=== PATIENT | female | born 1955 | race African-American/Black ===

== ENCOUNTER 2023-07-12 19:32 | Inpatient (IN) | payer MEDICARE, MEDICAID ==
[~2023-07-12] VITALS: Ht 157.5 cm; Wt 114.4 kg
[2023-07-12 19:42] VITALS: O2SAT 98
[2023-07-12] MEDS: ASPIRIN 325MG EC TABLET PO ONE (20:48)
[2023-07-12] MEDS: AMLODIPINE 5MG TABLET PO ONE (20:49)
[2023-07-12 20:54] LABS: BASOPHILS % 0.9 % (0.0-2.0); EOSINOPHILS % 1.2 % (0.0-5.0); HEMATOCRIT. 35.5 % (36.0-48.0); HEMOGLOBIN. 11.6 g/dL (12.0-16.0); LYMPHOCYTES % 47.4 % (20.0-50.0); MEAN CORPUSCULAR HEMOGLOBIN 28.1 pg (28.0-32.0); MEAN CORPUSCULAR HGB CONC 32.7 g/dL (31.0-37.0); MEAN PLATELET VOLUME 9.2 fl (7.4-10.4); MONOCYTES % 6.5 % (2.0-8.0); PLATELET 311 x1000/uL (130-400); RED BLOOD CELL COUNT 4.13 mill/uL (4.2-5.4); RED CELL DISTRIBUTION WIDTH 17.5 % (11.6-14.6); WHITE BLOOD COUNT 10.6 x1000/uL (4.5-11.0)
[2023-07-12 20:59] LABS: CHLORIDE 104 mEq/L (98-107); POTASSIUM 3.7 mEq/L (3.5-5.1); SODIUM 137 mEq/L (136-145)
[2023-07-12 21:00] LABS: CARBON DIOXIDE 28 mEq/L (21-32)
[2023-07-12 21:01] LABS: CALCIUM 10.6 mg/dL (8.7-10.4)
[2023-07-12 21:05] LABS: CREATININE 1.1 mg/dL (0.6-1.0); GLUCOSE 136 mg/dL (70-105)
[2023-07-12 21:06] LABS: UREA NITROGEN BLOOD 19 mg/dL (9-23)
[2023-07-12 21:10] LABS: TROPONIN I HIGH SENSITIVITY 204 ng/L (3.0-34)
[2023-07-12] MEDS: ENOXAPARIN 120MG/0.8ML SYR SUBCUT ONE (21:45)
[2023-07-12] MEDS: MORPHINE SULFATE 4 MG/ML INJ (FOR IV/IM USE) IV ONE (23:23)
[2023-07-13 00:36] LABS: TROPONIN I HIGH SENSITIVITY 196 ng/L (3.0-34)
[2023-07-13] MEDS: ZOLPIDEM TARTRATE 5MG TABLET PO PRN ×2 (03:32→22:27)
[2023-07-13] MEDS: HYDRALAZINE 20MG/ML VIAL IV ONE (03:32)
[2023-07-13] MEDS: LABETALOL 5MG/ML SYR 20 MG/4 ML SYRINGE IV ONE (03:32)
[2023-07-13] MEDS: LABETALOL 5MG/ML SYR 20 MG/4 ML SYRINGE IV NR (03:33)
[2023-07-13] MEDS: HYDRALAZINE 20MG/ML VIAL IV NR (03:33)
[2023-07-13] MEDS ORDERED: HYDROCODONE/ACETAMINOPHEN 10/325MG TABLET PO PRN (05:15)
[2023-07-13 09:00] VITALS: BP 195/98; PULSE 77; RESP 20; TEMP 98.5
[2023-07-13 09:29] VITALS: BP 195/98; PULSE 77; RESP 18; TEMP 98.5
[2023-07-13] MEDS ORDERED: NALOXONE HCL 0.4MG/ML VIAL IV PRN (09:30)
[2023-07-13 12:01] VITALS: BP 146/69; PULSE 82; RESP 18; TEMP 98.1
[2023-07-13] MEDS ORDERED: HEPARIN 25,000 UNITS PREMIX 250 ML IV SCH (12:15)
[2023-07-13] MEDS: NIFEDIPINE XL 60MG TAB PO SCH (12:23)
[2023-07-13] MEDS: ACETAMINOPHEN 325MG TABLET PO PRN (12:24)
[2023-07-13] MEDS: METOPROLOL TARTRATE 50MG TABLET PO SCH (12:55)
[2023-07-13] MEDS: ISOSORBIDE MONONITRATE 30MG TABLET SR 24HR PO SCH (12:56)
[2023-07-13] MEDS ORDERED: ATOR-2 PO (14:34)
[2023-07-13] MEDS ORDERED: ESCI20TA37 PO (14:34)
[2023-07-13] MEDS ORDERED: SPIR25TA6 PO (14:34)
[2023-07-13] MEDS ORDERED: POTA-203 PO (14:34)
[2023-07-13] MEDS ORDERED: FURO40TA5 PO (14:34)
[2023-07-13] MEDS ORDERED: CARV3.1242 PO (14:34)
[2023-07-13] MEDS ORDERED: OXYC1TAB12 PO (14:34)
[2023-07-13] MEDS ORDERED: ZOLP10TA2 PO (14:34)
[2023-07-13] MEDS ORDERED: LOSA50TA41 PO (14:34)
[2023-07-13 14:35] LABS: BASOPHILS % 1.2 % (0.0-2.0); EOSINOPHILS % 1.8 % (0.0-5.0); HEMATOCRIT. 34.2 % (36.0-48.0); HEMOGLOBIN. 10.9 g/dL (12.0-16.0); LYMPHOCYTES % 44.2 % (20.0-50.0); MEAN CORPUSCULAR HEMOGLOBIN 27.6 pg (28.0-32.0); MEAN CORPUSCULAR HGB CONC 31.8 g/dL (31.0-37.0); MEAN CORPUSCULAR VOLUME 86.7 fL (81.0-99.0); MONOCYTES % 10.2 % (2.0-8.0); NEUTROPHILS % 42.6 % (40.0-76.0); PLATELET 291 x1000/uL (130-400); RED BLOOD CELL COUNT 3.94 mill/uL (4.2-5.4); RED CELL DISTRIBUTION WIDTH 17.3 % (11.6-14.6); WHITE BLOOD COUNT 8.2 x1000/uL (4.5-11.0)
[2023-07-13 14:44] LABS: PARTIAL THROMBOPLASTIN TIME 25.3 sec (23.4-31.0); PROTHROMBIN TIME 11.1 sec (9.6-11.0)
[2023-07-13 15:04] LABS: *AMPHETAMINES SCREEN URINE NEGATIVE (NEGATIVE); *BARBITURATES SCREEN URINE NEGATIVE (NEGATIVE); *BENZODIAZEPINES SCREEN URINE NEGATIVE (NEGATIVE)
[2023-07-13 15:05] LABS: *COCAINE SCREEN URINE NEGATIVE (NEGATIVE); CANNABINOID URINE SCREEN NEGATIVE (NEGATIVE); ECSTASY MDMA SCREEN URINE NEGATIVE (NEGATIVE); METHADONE URINE SCREEN NEGATIVE (NEGATIVE); OPIATES URINE SCREEN PRESUMPTIVE POSITIVE (NEGATIVE); PHENCYCLIDINE URINE SCREEN NEGATIVE (NEGATIVE)
[2023-07-13 15:40] VITALS: BP 114/55; PULSE 58; RESP 20; TEMP 98.1
[2023-07-13] MEDS: HEPARIN 5000 UNITS/ML VIAL IV SCH (15:49)
[2023-07-13] MEDS: HEPARIN 25,000 UNITS PREMIX 250 ML IV SCH (15:57)
[2023-07-13 16:06] LABS: CLARITY URINE CLEAR (CLEAR); COLOR URINE YELLOW (YELLOW); GLUCOSE URINE NEGATIVE (NEGATIVE); KETONES URINE NEGATIVE (NEGATIVE); LEUKOCYTE ESTERASE URINE NEGATIVE (NEGATIVE); NITRITE URINE NEGATIVE (NEGATIVE); OCCULT BLOOD URINE NEGATIVE (NEGATIVE); PH URINE 7.5 (4.5-8.0); PROTEIN URINE NEGATIVE (NEGATIVE); SPECIFIC GRAVITY URINE 1.011 (1.005-1.030); UROBILINOGEN URINE 0.2 E.U./dL (0.2-1.0)
[2023-07-13] MEDS ORDERED: AMIODARONE HCL 900 MG in DEXT 5% WATER 482 ML IV SCH (17:00)
[2023-07-13] MEDS ORDERED: AMIODARONE HCL 900 MG in DEXT 5% WATER 482 ML IV PRN (17:00)
[2023-07-13] MEDS: FUROSEMIDE 20MG/2ML VIAL IVP NR (18:38)
[2023-07-13 20:00] VITALS: BP 121/83; PULSE 66; RESP 20; TEMP 98.2
[2023-07-13] MEDS: KETOROLAC 15MG/ML VIAL IV PRN (20:48)
[2023-07-13] MEDS ORDERED: HEPARIN 5000 UNITS/ML VIAL IV PRN (21:30)
[2023-07-13 21:33] VITALS: BP 163/74; PULSE 68; RESP 15; TEMP 98.6
[2023-07-13] MEDS: HYDROCODONE/ACETAMINOPHEN 10/325MG TABLET PO PRN (22:29)
[2023-07-13] MEDS: HEPARIN 5000 UNITS/ML VIAL IV PRN (23:54)
[2023-07-14] VITALS (10 sets, daily range): BP systolic 116–151; BP diastolic 49–111; PULSE 51–87; RESP 16–21; TEMP 97–97.6
[2023-07-14] MEDS: ONDANSETRON HCL 4MG/2ML INJ IV PRN (04:36)
[2023-07-14] MEDS ORDERED: LIDOCAINE HCL/PF 1% 10 MG/ML 5ML VIAL ONE (08:14)
[2023-07-14] MEDS ORDERED: DIPHENHYDRAMINE 50MG/ML VIAL ONE (08:15)
[2023-07-14] MEDS ORDERED: IODIXANOL 320MG/ML 100 ML BOTTLE IV ONE (08:15)
[2023-07-14] MEDS ORDERED: VERAPAMIL HCL 2.5 MG/1 ML 2ML VIAL IV ONE (08:15)
[2023-07-14] MEDS ORDERED: HEPARIN 1000 UNITS/ML 10ML ONE (08:15)
[2023-07-14] MEDS: ASPIRIN 81MG TABLET PO SCH (08:48)
[2023-07-14] MEDS ORDERED: MIDAZOLAM HCL 2 MG/2 ML VIAL ONE (09:01)
[2023-07-14] MEDS ORDERED: FENTANYL CITRATE/PF 50MCG/ML 2ML VIAL ONE (09:01)
[2023-07-14] MEDS ORDERED: HYDRALAZINE 20MG/ML VIAL ONE (09:48)
[2023-07-14] MEDS ORDERED: ATROPINE SULFATE 1MG/10ML SYR IV PRN (10:15)
[2023-07-14] MEDS ORDERED: ACETAMINOPHEN 325MG TABLET PO PRN (10:15)
[2023-07-14] MEDS: FUROSEMIDE 20MG/2ML VIAL IVP SCH (16:05)
[2023-07-15] VITALS (10 sets, daily range): BP systolic 109–166; BP diastolic 67–90; PULSE 49–64; RESP 12–20; TEMP 97–98.3
[2023-07-15 05:47] LABS: BASOPHILS % 0.6 % (0.0-2.0); EOSINOPHILS % 1.4 % (0.0-5.0); HEMATOCRIT. 36.9 % (36.0-48.0); HEMOGLOBIN. 12.1 g/dL (12.0-16.0); LYMPHOCYTES % 44.6 % (20.0-50.0); MEAN CORPUSCULAR HEMOGLOBIN 28.3 pg (28.0-32.0); MEAN CORPUSCULAR HGB CONC 32.7 g/dL (31.0-37.0); MEAN CORPUSCULAR VOLUME 86.5 fL (81.0-99.0); MEAN PLATELET VOLUME 8.7 fl (7.4-10.4); MONOCYTES % 8.1 % (2.0-8.0); NEUTROPHILS % 45.3 % (40.0-76.0); PLATELET 332 x1000/uL (130-400); RED BLOOD CELL COUNT 4.27 mill/uL (4.2-5.4); RED CELL DISTRIBUTION WIDTH 17.2 % (11.6-14.6); WHITE BLOOD COUNT 9.3 x1000/uL (4.5-11.0)
[2023-07-15 06:07] LABS: CALCIUM 10.8 mg/dL (8.7-10.4)
[2023-07-15 06:12] LABS: CREATININE 1.1 mg/dL (0.6-1.0)
[2023-07-15] MEDS ORDERED: METO-539 PO (10:08)
[2023-07-15] MEDS ORDERED: ISOS30TA91 PO (10:08)
[2023-07-15] MEDS ORDERED: NIFE-32 PO (10:08)
[2023-07-15] MEDS ORDERED: ASPI-1160 PO (10:08)
[2023-07-15 13:00] LABS: BG BASE EXCESS 7.1 mmol/L (-2.0-2.0); BG CARBOXYHEMOGLOBIN 0.4 % (0.5-1.5); BG DEOXYHEMOGLOBIN 7.2 % (0.0-5.0); BG FRACTION INSPIRED OXYGEN 21; BG HCO3 ACT 33.7 mmol/L (22.0-26.0); BG METHEMOGLOBIN 0.2 % (0.0-1.5); BG OXYGEN SATURATION 92.8 % (92.0-98.5); BG OXYHEMOGLOBIN 92.2 % (94.0-97.0); BG PCO2 57.7 mmHg (35.0-45.0); BG PH 7.384 (7.350-7.450); BG PO2 65.4 mmHg (75.0-100.0); BG SAMPLE SITE LEFT RADIAL; BG TOTAL HEMOGLOBIN 11.9 g/dL (12.0-18.0); BG VENT MODE ROOM AIR
[2023-07-15] MEDS ORDERED: ZOLP5TAB8 MT (13:56)
[2023-07-15] MEDS ORDERED: OXYC1TAB12 MT (13:56)
[2023-07-15] MEDS ORDERED: OXYC1TAB5 MT (15:20)
== END 2023-07-15 16:31 | disposition home health service (06) | DRG 192 ==
LOC: ER 20:28 → 5WST 22:15 → EDBEDREQ 22:21 → EDBEDREQTM 22:22 → 7WST 07-13 09:17 → 5EST 07-13 21:10
PROVIDERS: ADMIT Internal Medicine; ATTEND Internal Medicine
PROC: 4A023N7 Measurement of Cardiac Sampling and Pressure, Left Heart, Percutaneous Approach (ICD-10-PCS; principal; 2023-07-14)
PROC: B211YZZ Fluoroscopy of Multiple Coronary Arteries using Other Contrast (ICD-10-PCS; 2023-07-14)
DX: I11.0 Hypertensive heart disease with heart failure (principal); I21.4 Non-ST elevation (NSTEMI) myocardial infarction; I50.23 Acute on chronic systolic (congestive) heart failure; E66.9 Obesity, unspecified; Z68.42 Body mass index [BMI] 45.0-49.9, adult; I25.10 Atherosclerotic heart disease of native coronary artery without angina pectoris; E11.9 Type 2 diabetes mellitus without complications; I16.0 Hypertensive urgency; Z91.148 Patient's other noncompliance with medication regimen for other reason
CPT/HCPCS: 36415; 36600; 71045; 80048; 80305; 81003; 82375; 82805; 82962; 83036; 83880; 84484; 85025; 85347; 93005; 93306; 93458; 97161; 99291; C1769; C1887; C1893; J0282; J0360; J1200; J1644; J1650; J1885; J1940; J2250; J2270; J2405; J3010; J3490; J7060; Q9967

== ENCOUNTER 2024-06-01 18:53 | Inpatient (IN) | payer MEDICARE, MEDICAID ==
[~2024-06-01] VITALS: Ht 157.5 cm; Wt 127.0 kg
[~2024-06-01 18:53] MED LIST: ATOR-2 PO; ESCI20TA37 PO; FURO40TA5 PO; OXYC1TAB5 MT; POTA-203 PO; ZOLP10TA2 PO
[2024-06-01] MEDS: KETOROLAC 30MG/ML VIAL IM STA (20:05)
[2024-06-01 20:42] LABS: BASOPHILS % 1.7 % (0.0-2.0); DIFFERENTIAL COMMENT 0; EOSINOPHILS % 3.8 % (0.0-5.0); HEMATOCRIT. 36.8 % (36.0-48.0); HEMOGLOBIN. 11.2 g/dL (12.0-16.0); LYMPHOCYTES % 46.9 % (20.0-50.0); MEAN CORPUSCULAR HEMOGLOBIN 27.6 pg (28.0-32.0); MEAN CORPUSCULAR HGB CONC 30.4 g/dL (31.0-37.0); MEAN PLATELET VOLUME 9.1 fl (7.4-10.4); MONOCYTES % 7.3 % (2.0-8.0); NEUTROPHILS % 40.3 % (40.0-76.0); PLATELET 362 x1000/uL (130-400); RED BLOOD CELL COUNT 4.05 mill/uL (4.2-5.4); RED CELL DISTRIBUTION WIDTH 15.5 % (11.6-14.6); WHITE BLOOD COUNT 10.2 x1000/uL (4.5-11.0)
[2024-06-01 20:50] LABS: CHLORIDE 105 mEq/L (98-107); POTASSIUM 4.2 mEq/L (3.5-5.1); SODIUM 143 mEq/L (136-145)
[2024-06-01 20:51] LABS: CARBON DIOXIDE 31 mEq/L (21-32)
[2024-06-01 20:54] LABS: PROTHROMBIN TIME 10.6 sec (9.6-11.0)
[2024-06-01 20:56] LABS: GLUCOSE 117 mg/dL (70-105); UREA NITROGEN BLOOD 16 mg/dL (9-23)
[2024-06-01 20:58] LABS: ALANINE AMINOTRANSFERASE 15 IU/L (10-49); ASPARTATE AMINOTRANSFERASE 15 IU/L (<34); BILIRUBIN TOTAL 0.4 mg/dL (0.1-1.0); PROTEIN TOTAL 7.5 g/dL (6.0-8.3)
[2024-06-01 21:01] LABS: BILIRUBIN DIRECT < 0.1 mg/dL (<=3.0)
[2024-06-01 21:03] LABS: TROPONIN I HIGH SENSITIVITY 127 ng/L (3.0-34)
[2024-06-01] MEDS: ASPIRIN 325MG TABLET PO ONE (21:30)
[2024-06-01] MEDS: MORPHINE SULFATE 4 MG/ML INJ (FOR IV/IM USE) IV ONE (21:56)
[2024-06-01] MEDS ORDERED: CLONIDINE 0.1MG TABLET PO PRN (23:00)
[2024-06-01] MEDS ORDERED: DOCUSATE SODIUM 100MG CAPSULE PO PRN (23:00)
[2024-06-01] MEDS ORDERED: MAGNESIUM/ALUMINUM HYDROXIDE/SIMETHICONE 30ML UDC PO PRN (23:00)
[2024-06-01] MEDS ORDERED: ONDANSETRON HCL 4MG/2ML INJ IV PRN (23:00)
[2024-06-01] MEDS ORDERED: IPRATROPIUM/ALBUTEROL 0.5-3(2.5)MG/3ML NEB HHN PRN (23:00)
[2024-06-01] MEDS ORDERED: GUAIFENESIN 200MG/10ML SUGAR FREE UDC PO PRN (23:00)
[2024-06-01] MEDS ORDERED: NALOXONE HCL 0.4MG/ML VIAL IV PRN (23:00)
[2024-06-01] MEDS ORDERED: ACETAMINOPHEN 325MG TABLET PO PRN (23:00)
[2024-06-01] MEDS ORDERED: NA PHOS,M-B/NA PHOS,DI-BA ENEMA 118ML PR PRN (23:00)
[2024-06-01 23:04] LABS: TROPONIN I HIGH SENSITIVITY 129 ng/L (3.0-34)
[2024-06-02] VITALS (7 sets, daily range): BP systolic 122–171; BP diastolic 50–87; PULSE 52–57; RESP 17–18; TEMP 36.4–36.6; O2SAT 94–99
[2024-06-02] MEDS: HYDROCODONE/ACETAMINOPHEN 5/325MG TABLET PO PRN
[2024-06-02] MEDS ORDERED: DEXTROSE 50% WATER 50ML SYRINGE IV PRN (06:15)
[2024-06-02] MEDS: MORPHINE SULFATE 2 MG/ML INJ (NOT FOR IM USE) IV PRN ×2 (06:55→18:44)
[2024-06-02] MEDS: PANTOPRAZOLE 40MG DR TABLET PO SCH (06:55)
[2024-06-02] MEDS: BLOOD SUGAR DIAGNOSTIC STRIP TEST SCH (07:07)
[2024-06-02] MEDS: INSULIN LISPRO 100 UNITS/ML SUBCUT SCH (07:18)
[2024-06-02 08:50] LABS: BASOPHILS % 1.8 % (0.0-2.0); EOSINOPHILS % 3.8 % (0.0-5.0); HEMATOCRIT. 35.5 % (36.0-48.0); HEMOGLOBIN. 10.9 g/dL (12.0-16.0); LYMPHOCYTES % 43.9 % (20.0-50.0); MEAN CORPUSCULAR HEMOGLOBIN 27.6 pg (28.0-32.0); MEAN CORPUSCULAR HGB CONC 30.7 g/dL (31.0-37.0); MEAN CORPUSCULAR VOLUME 89.8 fL (81.0-99.0); MEAN PLATELET VOLUME 9.9 fl (7.4-10.4); MONOCYTES % 6.4 % (2.0-8.0); NEUTROPHILS % 44.1 % (40.0-76.0); PLATELET 288 x1000/uL (130-400); RED BLOOD CELL COUNT 3.95 mill/uL (4.2-5.4); RED CELL DISTRIBUTION WIDTH 15.2 % (11.6-14.6); WHITE BLOOD COUNT 10.1 x1000/uL (4.5-11.0)
[2024-06-02] MEDS: FUROSEMIDE 40MG/4ML VIAL IVP SCH (09:02)
[2024-06-02 09:03] LABS: CHLORIDE 105 mEq/L (98-107); SODIUM 143 mEq/L (136-145)
[2024-06-02] MEDS: HYDRALAZINE HCL 10MG TABLET PO SCH (09:03)
[2024-06-02] MEDS: LOSARTAN 25 MG TABLET PO SCH (09:03)
[2024-06-02] MEDS: ENOXAPARIN 30MG/0.3ML SYR SUBCUT SCH (09:04)
[2024-06-02 09:07] LABS: ALANINE AMINOTRANSFERASE 12 IU/L (10-49)
[2024-06-02 09:08] LABS: T4 FREE 1.06 ng/dL (0.89-1.76)
[2024-06-02 09:09] LABS: THYROID STIMULATING HORMONE 2.92 uIU/mL (0.55-4.78)
[2024-06-02 09:10] LABS: CALCIUM 9.5 mg/dL (8.7-10.4); CARBON DIOXIDE 30 mEq/L (21-32)
[2024-06-02 09:15] LABS: ASPARTATE AMINOTRANSFERASE 15 IU/L (<34)
[2024-06-02 09:16] LABS: ALBUMIN 3.7 g/dL (3.2-4.8); GLUCOSE 177 mg/dL (70-105)
[2024-06-02 09:18] LABS: BILIRUBIN TOTAL 0.3 mg/dL (0.1-1.0); UREA NITROGEN BLOOD 16 mg/dL (9-23)
[2024-06-02 09:19] LABS: PROTEIN TOTAL 6.8 g/dL (6.0-8.3)
[2024-06-02 09:22] LABS: CREATINE KINASE 68 IU/L (34-145)
[2024-06-02 09:23] LABS: BILIRUBIN DIRECT < 0.1 mg/dL (<=3.0); TROPONIN I HIGH SENSITIVITY 135 ng/L (3.0-34)
[2024-06-02] MEDS: MAGNESIUM 2 G PREMIX 50 ML IV NR (09:31)
[2024-06-02] MEDS: ACETAMINOPHEN 325MG TABLET PO PRN (13:28)
[2024-06-02] MEDS: AMLODIPINE 5MG TABLET PO NR (13:28)
[2024-06-02] MEDS: HYDRALAZINE HCL 50MG TABLET PO SCH (14:00)
[2024-06-02 15:27] LABS: CREATINE KINASE 71 IU/L (34-145)
[2024-06-02 15:40] LABS: TROPONIN I HIGH SENSITIVITY 123 ng/L (3.0-34)
[2024-06-02] MEDS ORDERED: NALOXONE HCL 0.4MG/ML VIAL IV PRN (18:00)
[2024-06-02] MEDS: POLYETHYLENE GLYCOL 3350 (17GM) 1 DOSE PACK PO SCH (18:38)
[2024-06-02] MEDS: SENNOSIDES/DOCUSATE SOD 8.6/50MG TABLET PO SCH (22:45)
[2024-06-02] MEDS: AMLODIPINE 5MG TABLET PO SCH (22:45)
[2024-06-03] VITALS: BP 135/70; PULSE 57; RESP 18; TEMP 36.5; O2SAT 99
[2024-06-03 04:00] VITALS: BP 147/80; PULSE 61; RESP 18; TEMP 36.5; O2SAT 99
[2024-06-03 06:30] LABS: EOSINOPHILS % 4.9 % (0.0-5.0); HEMATOCRIT. 33.8 % (36.0-48.0); HEMOGLOBIN. 10.5 g/dL (12.0-16.0); LYMPHOCYTES % 41.3 % (20.0-50.0); MEAN CORPUSCULAR HEMOGLOBIN 27.8 pg (28.0-32.0); MEAN CORPUSCULAR VOLUME 89.5 fL (81.0-99.0); MEAN PLATELET VOLUME 9.7 fl (7.4-10.4); MONOCYTES % 6.4 % (2.0-8.0); NEUTROPHILS % 46.4 % (40.0-76.0); PLATELET 208 x1000/uL (130-400); RED BLOOD CELL COUNT 3.78 mill/uL (4.2-5.4); RED CELL DISTRIBUTION WIDTH 15.3 % (11.6-14.6); WHITE BLOOD COUNT 9.1 x1000/uL (4.5-11.0)
[2024-06-03 06:45] LABS: CHLORIDE 104 mEq/L (98-107); POTASSIUM 4.1 mEq/L (3.5-5.1); SODIUM 140 mEq/L (136-145)
[2024-06-03 06:46] LABS: CALCIUM 9.4 mg/dL (8.7-10.4); CARBON DIOXIDE 28 mEq/L (21-32)
[2024-06-03 06:51] LABS: CREATININE 0.9 mg/dL (0.6-1.0); GLUCOSE 144 mg/dL (70-105); UREA NITROGEN BLOOD 15 mg/dL (9-23)
[2024-06-03 08:00] VITALS: BP 138/78; PULSE 71; RESP 18; TEMP 36.3; O2SAT 96
[2024-06-03] MEDS: TRAMADOL HCL/ACETAMINOPHEN 37.5/325MG TABLET PO PRN (09:29)
[2024-06-03 12:00] VITALS: BP 149/52; PULSE 69; RESP 18; TEMP 36.5; O2SAT 98
[2024-06-03 18:00] VITALS: BP 130/80; PULSE 68; RESP 18; TEMP 36.2; O2SAT 97
[2024-06-03 20:00] VITALS: BP 155/74; PULSE 68; RESP 18; TEMP 36.9; O2SAT 93
[2024-06-03] MEDS: ATORVASTATIN CALCIUM 40MG TABLET PO SCH (21:20)
[2024-06-03] MEDS: ZOLPIDEM TARTRATE 5MG TABLET PO NR (23:06)
[2024-06-04] VITALS: BP 131/74; PULSE 69; RESP 18; TEMP 36.2; O2SAT 95
[2024-06-04 04:00] VITALS: BP 154/74; PULSE 78; RESP 20; TEMP 36.4; O2SAT 95
[2024-06-04 12:00] VITALS: BP 126/85; PULSE 88; RESP 18; TEMP 36.9; O2SAT 98
[2024-06-04 16:00] VITALS: BP 120/78; PULSE 90; RESP 18; TEMP 36.5; O2SAT 99
[2024-06-04] MEDS: DIAZEPAM 5 MG/ML 2ML SYR IV NR (17:30)
[2024-06-04 20:00] VITALS: BP 161/79; PULSE 83; RESP 18; TEMP 36.4; O2SAT 96
[2024-06-04] MEDS: MELATONIN 3MG TABLET PO SCH (23:38)
[2024-06-05] VITALS: BP 128/53; PULSE 84; RESP 20; TEMP 36.1; O2SAT 96
[2024-06-05 04:00] VITALS: BP 144/60; PULSE 78; RESP 18; TEMP 36.6; O2SAT 96
[2024-06-05 08:00] VITALS: BP 123/70; PULSE 87; RESP 20; TEMP 36; O2SAT 97
[2024-06-05] MEDS ORDERED: LORAZEPAM 0.5MG TABLET PO PRN (09:15)
[2024-06-05 12:00] VITALS: BP 146/92; PULSE 85; RESP 18; TEMP 36.2; O2SAT 98
[2024-06-05] MEDS ORDERED: DIAZEPAM 5 MG/ML 2ML SYR IV NR (14:00)
[2024-06-05] MEDS: LORAZEPAM 2MG/ML INJ IV PRN (14:05)
[2024-06-05 16:00] VITALS: BP 118/66; PULSE 84; RESP 18; TEMP 36.5; O2SAT 98
[2024-06-05 20:00] VITALS: BP 119/51; PULSE 78; RESP 20; TEMP 36.2; O2SAT 93
[2024-06-05] MEDS ORDERED: MELATONIN 3MG TABLET PO SCH (21:00)
[2024-06-06] VITALS: BP 141/63; PULSE 76; RESP 20; TEMP 37; O2SAT 98
[2024-06-06 04:00] VITALS: BP 141/102; PULSE 93; RESP 21; TEMP 36.4; O2SAT 95
[2024-06-06 08:00] VITALS: BP 156/66; PULSE 72; RESP 18; TEMP 36.7; O2SAT 97
[2024-06-06 12:00] VITALS: BP 130/58; PULSE 84; RESP 20; TEMP 36.9; O2SAT 96
[2024-06-06] MEDS: LOSARTAN 25 MG TABLET PO NR (12:04)
[2024-06-06] MEDS ORDERED: METF-414 MT (15:08)
[2024-06-06 20:00] VITALS: BP 130/66; PULSE 89; RESP 20; TEMP 36.7; O2SAT 98
[2024-06-07] VITALS: BP 146/64; PULSE 98; RESP 19; TEMP 36.6; O2SAT 98
[2024-06-07 04:00] VITALS: BP 168/89; PULSE 85; RESP 19; TEMP 36.3; O2SAT 95
[2024-06-07] MEDS: HYDROCODONE/ACETAMINOPHEN 5/325MG TABLET PO PRN (06:25)
[2024-06-07 08:00] VITALS: BP 196/107; PULSE 95; RESP 17; TEMP 36.1; O2SAT 96
[2024-06-07] MEDS: LOSARTAN 50 MG TABLET PO SCH (08:46)
[2024-06-07 12:00] VITALS: BP 182/47; PULSE 95; RESP 17; TEMP 36.1; O2SAT 95
[2024-06-07] MEDS: HYDROMORPHONE HCL/PF 1MG/ML INJ IV NR (12:52)
[2024-06-07 16:00] VITALS: BP 135/70; PULSE 77; RESP 18; TEMP 36.1; O2SAT 96
[2024-06-07 20:00] VITALS: BP 135/60; PULSE 73; RESP 19; TEMP 36.2; O2SAT 98
[2024-06-07] MEDS: PREDNISONE 10MG TABLET PO SCH (20:30)
[2024-06-07] MEDS: DICLOFENAC SODIUM 75MG DR TABLET PO SCH (21:00)
[2024-06-07] MEDS ORDERED: BUPROPION HCL 150MG TABLET XL 24HR PO SCH (21:00)
[2024-06-07 21:41] LABS: URIC ACID 4.8 mg/dL (3.1-7.8)
[2024-06-07] MEDS: PREGABALIN 75MG CAPSULE PO SCH (22:09)
[2024-06-07] MEDS: HYDROXYCHLOROQUINE SULFATE 200MG TABLET PO SCH (22:09)
[2024-06-07] MEDS: BUPROPION HCL 75MG TABLET PO SCH (22:17)
[2024-06-08] VITALS: BP 138/76; PULSE 85; RESP 19; TEMP 36.2; O2SAT 98
[2024-06-08 08:00] VITALS: BP 136/77; PULSE 84; RESP 19; TEMP 35.6; O2SAT 97
[2024-06-08 12:00] VITALS: BP 128/78; PULSE 72; RESP 18; TEMP 36.1; O2SAT 97
[2024-06-08] MEDS ORDERED: HYDROMORPHONE HCL 2MG TABLET PO PRN (12:00)
[2024-06-08] MEDS: DEXAMETHASONE 4MG/ML 1ML VIAL IV SCH (13:09)
[2024-06-08 13:59] VITALS: BP 128/78; PULSE 72; TEMP 97; O2SAT 97
[2024-06-09] MEDS ORDERED: SEMA3TAB4 (19:53)
[2024-06-09] MEDS ORDERED: LOSA100T33 MT (19:53)
[2024-06-09] MEDS ORDERED: ASPI-1497 MT (19:53)
[2024-06-09] MEDS ORDERED: EMPA25TA MT (19:53)
[2024-06-09] MEDS ORDERED: LISI10TA26 MT (19:53)
[2024-06-09] MEDS ORDERED: AMLO5TAB88 MT (19:53)
[2024-06-09] MEDS ORDERED: PANT40TA51 MT (19:53)
[2024-06-09] MEDS ORDERED: FURO40TA5 MT (19:53)
[2024-06-11 06:12] LABS: COMPLEMENT C3 227 mg/dL (82-167); COMPLEMENT C4 31 mg/dL (12-38)
[2024-06-11 09:08] LABS: ALDOLASE 8.5 U/L (3.3-10.3); G6PD QUANTITATIVE 348 (127-427)
[2024-06-11 10:10] LABS: ANTI-JO 1 ABS <0.2 AI (0.0-0.9); RNP ANTIBODY < 0.2 AI (0.0-0.9); SMITH ANTIBODY < 0.2 AI (0.0-0.9)
[2024-06-11 13:12] LABS: ANTI-DNA DOUBLE STRANDED QUANT < 1 IU/mL (0-9)
[2024-06-11 19:10] LABS: ACTIN (SMOOTH MUSCLE) ANTIBODY 6 Units (0-19)
[2024-06-12 09:11] LABS: ATYPICAL P-ANCA <1:20 titer (Neg:<1:20); CYTOPLASMIC C-ANCA <1:20 titer (Neg:<1:20); PERINUCLEAR P-ANCA <1:20 titer (Neg:<1:20)
[2024-06-12 15:10] LABS: ANTI-MYELOPEROXIDASE AB < 0.2 units (0.0-0.9); ANTI-PROTEINASE 3 ABS < 0.2 units (0.0-0.9)
[2024-06-12 17:07] LABS: ANGIOTENSION CONVERTING ENZYME 37 U/L (14-82)
[2024-06-13 17:07] LABS: ANA IFA Negative (.)
== END 2024-06-08 15:50 | DRG 551 ==
LOC: ER 18:53 → 8WST 22:33 → EDBEDREQTM 23:39 → EDBEDREQ 23:39 → 8EST 06-06 13:10
PROVIDERS: ADMIT Internal Medicine; ATTEND Internal Medicine
DX: M51.16 Intervertebral disc disorders with radiculopathy, lumbar region (principal); I21.A1 Myocardial infarction type 2; Z68.43 Body mass index [BMI] 50.0-59.9, adult; I50.22 Chronic systolic (congestive) heart failure; M48.061 Spinal stenosis, lumbar region without neurogenic claudication; R00.1 Bradycardia, unspecified; D63.8 Anemia in other chronic diseases classified elsewhere; E11.51 Type 2 diabetes mellitus with diabetic peripheral angiopathy without gangrene; E66.01 Morbid (severe) obesity due to excess calories; E78.5 Hyperlipidemia, unspecified; M13.0 Polyarthritis, unspecified; I11.0 Hypertensive heart disease with heart failure; M43.16 Spondylolisthesis, lumbar region; M50.31 Other cervical disc degeneration, high cervical region; M70.72 Other bursitis of hip, left hip; Z96.652 Presence of left artificial knee joint; Z79.84 Long term (current) use of oral hypoglycemic drugs; Z82.49 Family history of ischemic heart disease and other diseases of the circulatory system
CPT/HCPCS: 36415; 71045; 72141; 72146; 72148; 73120; 73502; 73552; 80048; 80061; 80076; 82085; 82164; 82550; 82595; 82955; 82962; 83036; 83520; 83605; 83735; 83880; 84100; 84439; 84443; 84484; 84550; 85025; 85041; 85651; 86147; 86160; 86225; 86235; 86256; 86431; 93005; 93306; 93970; 97162; 97166; 97535; 99291; A4606; C1893; J1100; J1171; J1650; J1815; J1885; J1940; J2060; J2270; J3475; J7512

== ENCOUNTER 2024-06-08 16:06 | Inpatient (IN) | payer MEDICARE, MEDICAID ==
[~2024-06-08] VITALS: Ht 154.9 cm; Wt 126.6 kg
[~2024-06-08 16:06] MED LIST changes: +METF-414 MT; -OXYC1TAB5 MT; -ZOLP10TA2 PO
[2024-06-08 16:10] VITALS: BP 151/72; PULSE 78; RESP 20; TEMP 36.6; O2SAT 98
[2024-06-08] MEDS ORDERED: HYDROMORPHONE HCL 2MG TABLET PO PRN (16:15)
[2024-06-08 16:22] VITALS: BP 151/78; PULSE 78; RESP 20; TEMP 36.6
[2024-06-08] MEDS ORDERED: NA PHOS,M-B/NA PHOS,DI-BA ENEMA 118ML PR PRN (16:45)
[2024-06-08] MEDS ORDERED: HYDROCODONE/ACETAMINOPHEN 5/325MG TABLET PO PRN (16:45)
[2024-06-08] MEDS ORDERED: DEXTROSE 50% WATER 50ML SYRINGE IV PRN (16:45)
[2024-06-08] MEDS ORDERED: SENNOSIDES/DOCUSATE SOD 8.6/50MG TABLET PO PRN (16:45)
[2024-06-08] MEDS: HYDROMORPHONE HCL 2MG TABLET PO PRN (16:46)
[2024-06-08] MEDS: BLOOD SUGAR DIAGNOSTIC STRIP TEST SCH (17:00)
[2024-06-08] MEDS ORDERED: IPRATROPIUM/ALBUTEROL 0.5-3(2.5)MG/3ML NEB HHN PRN (17:15)
[2024-06-08] MEDS: DEXAMETHASONE 4MG/ML 1ML VIAL IV SCH (17:47)
[2024-06-08] MEDS: INSULIN LISPRO 100 UNITS/ML SUBCUT SCH (17:55)
[2024-06-08 20:00] VITALS: BP 137/89; PULSE 88; RESP 18; TEMP 36.3; O2SAT 96
[2024-06-08] MEDS: ATORVASTATIN CALCIUM 40MG TABLET PO SCH (21:18)
[2024-06-08] MEDS: AMLODIPINE 5MG TABLET PO SCH (21:19)
[2024-06-08] MEDS: MELATONIN 3MG TABLET PO SCH (21:19)
[2024-06-08] MEDS: HYDROXYCHLOROQUINE SULFATE 200MG TABLET PO SCH (21:19)
[2024-06-08] MEDS: PREGABALIN 75MG CAPSULE PO SCH (21:19)
[2024-06-08] MEDS: ENOXAPARIN 30MG/0.3ML SYR SUBCUT SCH (21:20)
[2024-06-08] MEDS: DICLOFENAC SODIUM 75MG DR TABLET PO SCH (21:20)
[2024-06-08] MEDS: BUPROPION HCL 75MG TABLET PO SCH (21:20)
[2024-06-08] MEDS: HYDRALAZINE HCL 50MG TABLET PO SCH (21:21)
[2024-06-08] MEDS: SENNOSIDES/DOCUSATE SOD 8.6/50MG TABLET PO SCH (23:00)
[2024-06-09] MEDS: HYDROCODONE/ACETAMINOPHEN 10/325MG TABLET PO PRN (04:33)
[2024-06-09] MEDS: PANTOPRAZOLE 40MG DR TABLET PO SCH (06:13)
[2024-06-09] MEDS: ACETAMINOPHEN 650MG/20.3ML UDC PO PRN (06:16)
[2024-06-09] MEDS: CLONIDINE 0.1MG TABLET PO PRN (06:18)
[2024-06-09] MEDS: ACETAMINOPHEN 325MG TABLET PO PRN ×2 (06:25→06:40)
[2024-06-09 08:01] LABS: BASOPHILS % 0.9 % (0.0-2.0); HEMATOCRIT. 34.3 % (36.0-48.0); HEMOGLOBIN. 10.5 g/dL (12.0-16.0); LYMPHOCYTES % 19.9 % (20.0-50.0); MEAN CORPUSCULAR HGB CONC 30.7 g/dL (31.0-37.0); MEAN CORPUSCULAR VOLUME 88.1 fL (81.0-99.0); MEAN PLATELET VOLUME 9.8 fl (7.4-10.4); MONOCYTES % 1.5 % (2.0-8.0); NEUTROPHILS % 77.7 % (40.0-76.0); PLATELET 275 x1000/uL (130-400); RED BLOOD CELL COUNT 3.89 mill/uL (4.2-5.4); RED CELL DISTRIBUTION WIDTH 15.2 % (11.6-14.6); WHITE BLOOD COUNT 11.7 x1000/uL (4.5-11.0)
[2024-06-09 08:25] LABS: CHLORIDE 97 mEq/L (98-107); POTASSIUM 4.6 mEq/L (3.5-5.1); SODIUM 133 mEq/L (136-145)
[2024-06-09 08:26] LABS: CALCIUM 10.2 mg/dL (8.7-10.4); CARBON DIOXIDE 25 mEq/L (21-32)
[2024-06-09 08:31] LABS: GLUCOSE 314 mg/dL (70-105); UREA NITROGEN BLOOD 20 mg/dL (9-23)
[2024-06-09 08:33] LABS: ALANINE AMINOTRANSFERASE 31 IU/L (10-49); ASPARTATE AMINOTRANSFERASE 23 IU/L (<34); BILIRUBIN TOTAL 0.4 mg/dL (0.1-1.0); PROTEIN TOTAL 7.4 g/dL (6.0-8.3)
[2024-06-09 09:00] VITALS: BP 118/56; PULSE 88; RESP 18; TEMP 36.6; O2SAT 97
[2024-06-09] MEDS: POLYETHYLENE GLYCOL 3350 (17GM) 1 DOSE PACK PO SCH (09:25)
[2024-06-09] MEDS: LOSARTAN 50 MG TABLET PO SCH (09:26)
[2024-06-09] MEDS: GUAIFENESIN 200MG/10ML SUGAR FREE UDC PO PRN (14:56)
[2024-06-09] MEDS: HYDROMORPHONE HCL 2MG TABLET PO NR (14:56)
[2024-06-09] MEDS ORDERED: HYDROMORPHONE HCL 2MG TABLET PO PRN (15:15)
[2024-06-09] MEDS ORDERED: HYDROCODONE/ACETAMINOPHEN 10/325MG TABLET PO PRN (15:15)
[2024-06-09] MEDS ORDERED: METHYLPREDNISOLONE ACETATE 40MG/ML VIAL IM NR (18:00)
[2024-06-09] MEDS ORDERED: LIDOCAINE HCL 1% 20ML VIAL INFIL NR (18:00)
[2024-06-09] MEDS ORDERED: AMLO5TAB88 MT (19:53)
[2024-06-09] MEDS ORDERED: EMPA25TA MT (19:53)
[2024-06-09] MEDS ORDERED: ASPI-1497 MT (19:53)
[2024-06-09] MEDS ORDERED: SEMA3TAB4 (19:53)
[2024-06-09] MEDS ORDERED: FURO40TA5 MT (19:53)
[2024-06-09] MEDS ORDERED: PANT40TA51 MT (19:53)
[2024-06-09] MEDS ORDERED: LOSA100T33 MT (19:53)
[2024-06-09] MEDS ORDERED: LISI10TA26 MT (19:53)
[2024-06-09 20:00] VITALS: BP 154/99; PULSE 94; RESP 19; TEMP 36.9; O2SAT 98
[2024-06-09] MEDS: PREGABALIN 50 MG CAPSULE PO SCH (21:48)
[2024-06-09] MEDS: BUPROPION HCL 75MG TABLET PO SCH (21:50)
[2024-06-09] MEDS: MELATONIN 3MG TABLET PO SCH (21:51)
[2024-06-09] MEDS: PREDNISONE 10MG TABLET PO SCH (21:51)
[2024-06-09] MEDS: HYDROCODONE/ACETAMINOPHEN 5/325MG TABLET PO PRN (22:53)
[2024-06-10 08:00] VITALS: BP 141/71; PULSE 88; RESP 20; TEMP 36.6; O2SAT 93
[2024-06-10] MEDS: METFORMIN HCL 500MG TABLET PO SCH (18:02)
[2024-06-10] MEDS: EMPAGLIFLOZIN 25MG TABLET PO SCH (18:02)
[2024-06-10] MEDS ORDERED: NALOXONE HCL 0.4MG/ML VIAL IV PRN (18:15)
[2024-06-10] MEDS: INSULIN GLARGINE 100 UNITS/ML SUBCUT SCH (18:16)
[2024-06-10] MEDS: INSULIN LISPRO 100 UNITS/ML SUBCUT NR (18:16)
[2024-06-10 20:00] VITALS: BP 156/93; PULSE 85; RESP 18; TEMP 35.7; O2SAT 95
[2024-06-10] MEDS: INSULIN LISPRO 100 UNITS/ML SUBCUT SCH (22:27)
[2024-06-11] MEDS: INSULIN LISPRO 100 UNITS/ML SUBCUT SCH ×2 (07:20→19:13)
[2024-06-11 08:00] VITALS: BP 146/83; PULSE 79; RESP 19; TEMP 36.7; O2SAT 95
[2024-06-11] MEDS: METFORMIN HCL 500MG TABLET PO SCH (19:05)
[2024-06-11] MEDS: HYDROCODONE/ACETAMINOPHEN 5/325MG TABLET PO PRN (19:11)
[2024-06-11 20:00] VITALS: BP 147/80; PULSE 77; RESP 19; TEMP 36.5; O2SAT 98
[2024-06-11] MEDS: INSULIN GLARGINE 100 UNITS/ML SUBCUT SCH (22:00)
[2024-06-11] MEDS: LORAZEPAM 0.5MG TABLET PO PRN (23:07)
[2024-06-12 08:00] VITALS: BP 152/65; PULSE 74; RESP 17; TEMP 36.1; O2SAT 97
[2024-06-12] MEDS: HYDROCODONE/ACETAMINOPHEN 10/325MG TABLET PO PRN (09:00)
[2024-06-12] MEDS: MAGNESIUM/ALUMINUM HYDROXIDE/SIMETHICONE 30ML UDC PO PRN (09:01)
[2024-06-12] MEDS: INSULIN LISPRO 100 UNITS/ML SUBCUT SCH (13:54)
[2024-06-12 17:45] VITALS: BP 137/87; PULSE 103; RESP 16; TEMP 36.2; O2SAT 97
[2024-06-12 17:56] VITALS: BP 137/87; PULSE 102; TEMP 97.1; O2SAT 97
[2024-06-12] MEDS ORDERED: PANTOPRAZOLE SODIUM 40 MG/VIAL IV SCH (18:30)
[2024-06-12] MEDS: ONDANSETRON HCL 4MG/2ML INJ IV PRN (18:36)
[2024-06-12 18:44] LABS: HEMATOCRIT 33.4 % (36.0-48.0); HEMOGLOBIN 10.2 g/dL (12.0-16.0)
[2024-06-12] MEDS ORDERED: INSULIN LISPRO 100 UNITS/ML SUBCUT SCH (21:00)
[2024-06-12] MEDS ORDERED: INSULIN GLARGINE 100 UNITS/ML SUBCUT SCH (22:00)
[2024-06-13] MEDS ORDERED: PREGABALIN 75MG CAPSULE PO SCH (21:00)
[2024-06-13] MEDS ORDERED: MELATONIN 3MG TABLET PO SCH (21:00)
[2024-06-13] MEDS ORDERED: TRAZODONE HCL 50MG TABLET PO SCH (21:00)
== END 2024-06-12 18:45 | disposition short-term general hospital (02) | DRG 551 ==
PROVIDERS: ADMIT Psychiatry & Neurology Neurology; ATTEND Internal Medicine
PROC: 3E0U3BZ Introduction of Anesthetic Agent into Joints, Percutaneous Approach (ICD-10-PCS; principal; 2024-06-09)
PROC: 3E0U33Z Introduction of Anti-inflammatory into Joints, Percutaneous Approach (ICD-10-PCS; 2024-06-09)
PROC: 3E0U3BZ Introduction of Anesthetic Agent into Joints, Percutaneous Approach (ICD-10-PCS; 2024-06-09)
PROC: 3E0U33Z Introduction of Anti-inflammatory into Joints, Percutaneous Approach (ICD-10-PCS; 2024-06-09)
PROC: 3E023BZ Introduction of Anesthetic Agent into Muscle, Percutaneous Approach (ICD-10-PCS; 2024-06-09)
PROC: 3E0233Z Introduction of Anti-inflammatory into Muscle, Percutaneous Approach (ICD-10-PCS; 2024-06-09)
PROC: 3E0U3BZ Introduction of Anesthetic Agent into Joints, Percutaneous Approach (ICD-10-PCS; 2024-06-09)
PROC: 3E0U33Z Introduction of Anti-inflammatory into Joints, Percutaneous Approach (ICD-10-PCS; 2024-06-09)
DX: M47.26 Other spondylosis with radiculopathy, lumbar region (principal); I21.4 Non-ST elevation (NSTEMI) myocardial infarction; I50.42 Chronic combined systolic (congestive) and diastolic (congestive) heart failure; Z68.43 Body mass index [BMI] 50.0-59.9, adult; M13.0 Polyarthritis, unspecified; M51.16 Intervertebral disc disorders with radiculopathy, lumbar region; M48.061 Spinal stenosis, lumbar region without neurogenic claudication; M70.72 Other bursitis of hip, left hip; M77.9 Enthesopathy, unspecified; E66.01 Morbid (severe) obesity due to excess calories; D63.8 Anemia in other chronic diseases classified elsewhere; R39.15 Urgency of urination; E78.5 Hyperlipidemia, unspecified; E11.65 Type 2 diabetes mellitus with hyperglycemia; I11.0 Hypertensive heart disease with heart failure; G89.29 Other chronic pain; M79.7 Fibromyalgia; M48.04 Spinal stenosis, thoracic region; M50.31 Other cervical disc degeneration, high cervical region; M51.379 Other intervertebral disc degeneration, lumbosacral region without mention of lumbar back pain or lower extremity pain; T38.0X5D Adverse effect of glucocorticoids and synthetic analogues, subsequent encounter; F41.9 Anxiety disorder, unspecified; D18.09 Hemangioma of other sites; E11.51 Type 2 diabetes mellitus with diabetic peripheral angiopathy without gangrene; K80.20 Calculus of gallbladder without cholecystitis without obstruction; M43.16 Spondylolisthesis, lumbar region; Z96.652 Presence of left artificial knee joint; R26.2 Difficulty in walking, not elsewhere classified; M79.652 Pain in left thigh; R26.9 Unspecified abnormalities of gait and mobility; R00.1 Bradycardia, unspecified; R30.0 Dysuria; Z60.2 Problems related to living alone; M25.561 Pain in right knee; Z76.5 Malingerer [conscious simulation]; Z91.81 History of falling; Z79.899 Other long term (current) drug therapy
CPT/HCPCS: 36415; 76770; 80053; 82962; 85014; 85018; 85025; 92610; 97110; 97112; 97116; 97162; 97166; 97530; 97535; A4606; J1030; J1100; J1650; J1815; J2405; J3490; J7512

== ENCOUNTER 2024-06-18 21:50 | Inpatient (IN) | payer MEDICARE, MEDICAID ==
[~2024-06-18] VITALS: Ht 154.9 cm; Wt 134.9 kg
[2024-06-18 21:50] VITALS: BP 148/97; PULSE 88; RESP 20; TEMP 36.8
[~2024-06-18 21:50] MED LIST changes: +AMLO5TAB88 MT; +ASPI-1497 MT; +EMPA25TA MT; +FURO40TA5 MT; +LISI10TA26 MT; +LOSA100T33 MT; +PANT40TA51 MT; +SEMA3TAB4
[2024-06-18] MEDS ORDERED: NALOXONE HCL 0.4MG/ML 1ML VIAL IV PRN (23:00)
[2024-06-18] MEDS ORDERED: DEXTROSE 50% WATER 50ML SYRINGE IV PRN (23:00)
[2024-06-18] MEDS ORDERED: HYDRALAZINE HCL 10MG TABLET PO PRN (23:00)
[2024-06-18] MEDS ORDERED: PROCHLORPERAZINE 10MG/2ML VIAL IV PRN (23:00)
[2024-06-19] MEDS: LORAZEPAM 0.5MG TABLET PO PRN (01:08)
[2024-06-19] MEDS: FLUCONAZOLE 150MG TABLET PO NR (01:09)
[2024-06-19] MEDS: NYSTATIN 100,000 UNITS/GM CREAM 15GM TOP SCH (01:09)
[2024-06-19] MEDS: HYDROCODONE/ACETAMINOPHEN 10/325MG TABLET PO PRN (04:29)
[2024-06-19] MEDS: BLOOD SUGAR DIAGNOSTIC STRIP TEST SCH (06:36)
[2024-06-19] MEDS: SUCRALFATE 1G TABLET PO SCH (06:50)
[2024-06-19] MEDS: INSULIN LISPRO 100 UNITS/ML SUBCUT SCH (06:56)
[2024-06-19 07:12] LABS: BASOPHILS % 0.1 % (0.0-2.0); EOSINOPHILS % 1.3 % (0.0-5.0); HEMATOCRIT. 24.6 % (36.0-48.0); HEMOGLOBIN. 7.7 g/dL (12.0-16.0); LYMPHOCYTES % 19.9 % (20.0-50.0); MEAN CORPUSCULAR HEMOGLOBIN 27.9 pg (28.0-32.0); MEAN CORPUSCULAR HGB CONC 31.2 g/dL (31.0-37.0); MEAN CORPUSCULAR VOLUME 89.3 fL (81.0-99.0); MEAN PLATELET VOLUME 9.7 fl (7.4-10.4); MONOCYTES % 5.1 % (2.0-8.0); NEUTROPHILS % 73.6 % (40.0-76.0); PLATELET 279 x1000/uL (130-400); RED BLOOD CELL COUNT 2.75 mill/uL (4.2-5.4); RED CELL DISTRIBUTION WIDTH 15.2 % (11.6-14.6); WHITE BLOOD COUNT 19.4 x1000/uL (4.5-11.0)
[2024-06-19 07:14] LABS: CHLORIDE 101 mEq/L (98-107); POTASSIUM 3.9 mEq/L (3.5-5.1); SODIUM 139 mEq/L (136-145)
[2024-06-19 07:17] LABS: CARBON DIOXIDE 30 mEq/L (21-32)
[2024-06-19 07:18] LABS: CALCIUM 9.8 mg/dL (8.7-10.4)
[2024-06-19 07:23] LABS: CREATININE 0.8 mg/dL (0.6-1.0); GLUCOSE 176 mg/dL (70-105); UREA NITROGEN BLOOD 9 mg/dL (9-23)
[2024-06-19 07:25] LABS: ALBUMIN 3.6 g/dL (3.2-4.8); ASPARTATE AMINOTRANSFERASE 16 IU/L (<34); BILIRUBIN TOTAL 0.6 mg/dL (0.1-1.0); PREALBUMIN 25.5 mg/dl (10.0-40.0); PROTEIN TOTAL 6.2 g/dL (6.0-8.3)
[2024-06-19 07:27] LABS: ALANINE AMINOTRANSFERASE 18 IU/L (10-49)
[2024-06-19 08:00] VITALS: BP 124/51; PULSE 71; RESP 17; TEMP 34.7; O2SAT 98
[2024-06-19] MEDS: PANTOPRAZOLE 40MG DR TABLET PO SCH (08:11)
[2024-06-19] MEDS: CYANOCOBALAMIN 1000MCG TABLET PO SCH (08:11)
[2024-06-19] MEDS: EMPAGLIFLOZIN 25MG TABLET PO SCH (08:11)
[2024-06-19] MEDS: METFORMIN HCL 500MG TABLET PO SCH (08:12)
[2024-06-19] MEDS: AMLODIPINE 5MG TABLET PO SCH (08:16)
[2024-06-19] MEDS: ONDANSETRON HCL 4MG/2ML INJ IV PRN (08:28)
[2024-06-19] MEDS ORDERED: INSULIN LISPRO 100 UNITS/ML SUBCUT SCH (09:00)
[2024-06-19 14:13] LABS: CLARITY URINE CLEAR (CLEAR); COLOR URINE YELLOW (YELLOW); GLUCOSE URINE 3+ (NEGATIVE); KETONES URINE NEGATIVE (NEGATIVE); LEUKOCYTE ESTERASE URINE TRACE (NEGATIVE); NITRITE URINE NEGATIVE (NEGATIVE); OCCULT BLOOD URINE NEGATIVE (NEGATIVE); PROTEIN URINE NEGATIVE (NEGATIVE); SPECIFIC GRAVITY URINE 1.018 (1.005-1.030)
[2024-06-19] MEDS ORDERED: MAGNESIUM HYDROXIDE 400MG/5ML 30ML UDC PO PRN (14:45)
[2024-06-19 15:02] LABS: IRON 18 ug/dL (50-170)
[2024-06-19 15:05] LABS: TOTAL IRON BINDING CAPACITY 258 ug/dl (250-425)
[2024-06-19 15:15] LABS: RBC URINE 0-2 /hpf (0-2); SQUAMOUS EPITHELIAL CELL URINE 2+ /lpf (RARE/1+); WBC URINE 0-2 /hpf (0-2)
[2024-06-19 15:16] LABS: BACTERIA URINE TRACE
[2024-06-19] MEDS: IRON SUCROSE COMPLEX 100 MG/5 ML ML IV SCH (17:59)
[2024-06-19 20:00] VITALS: BP 132/95; PULSE 76; RESP 18; TEMP 36; O2SAT 96
[2024-06-19] MEDS: SENNOSIDES 8.6MG TABLET PO SCH (21:17)
[2024-06-19] MEDS: BUPROPION HCL 150MG TABLET XL 24HR PO SCH (21:18)
[2024-06-19] MEDS: ATORVASTATIN CALCIUM 40MG TABLET PO SCH (21:18)
[2024-06-20] MEDS: ZOLPIDEM TARTRATE 5MG TABLET PO PRN (00:45)
[2024-06-20 06:45] LABS: BASOPHILS % 0.5 % (0.0-2.0); EOSINOPHILS % 1.3 % (0.0-5.0); HEMATOCRIT. 24.7 % (36.0-48.0); HEMOGLOBIN. 7.9 g/dL (12.0-16.0); MEAN CORPUSCULAR HEMOGLOBIN 28.6 pg (28.0-32.0); MEAN CORPUSCULAR VOLUME 89.4 fL (81.0-99.0); MEAN PLATELET VOLUME 9.2 fl (7.4-10.4); MONOCYTES % 7.3 % (2.0-8.0); NEUTROPHILS % 65.9 % (40.0-76.0); PLATELET 322 x1000/uL (130-400); RED BLOOD CELL COUNT 2.76 mill/uL (4.2-5.4); RED CELL DISTRIBUTION WIDTH 15.5 % (11.6-14.6); WHITE BLOOD COUNT 18.6 x1000/uL (4.5-11.0)
[2024-06-20 06:53] LABS: FERRITIN 65 ng/mL (10-291)
[2024-06-20 06:56] LABS: VITAMIN B12 SERUM 614 pg/mL (211-911)
[2024-06-20 08:00] VITALS: BP 138/68; PULSE 75; RESP 19; TEMP 36.1; O2SAT 95
[2024-06-20] MEDS: POLYETHYLENE GLYCOL 3350 (17GM) 1 DOSE PACK PO SCH (08:17)
[2024-06-20 08:25] LABS: CHLORIDE 103 mEq/L (98-107); SODIUM 140 mEq/L (136-145)
[2024-06-20 08:26] LABS: CALCIUM 9.7 mg/dL (8.7-10.4); CARBON DIOXIDE 30 mEq/L (21-32)
[2024-06-20 08:31] LABS: CREATININE 0.9 mg/dL (0.6-1.0); GLUCOSE 127 mg/dL (70-105); IRON 82 ug/dL (50-170); UREA NITROGEN BLOOD 10 mg/dL (9-23)
[2024-06-20 08:33] LABS: ALANINE AMINOTRANSFERASE 18 IU/L (10-49); ALBUMIN 3.6 g/dL (3.2-4.8); ASPARTATE AMINOTRANSFERASE 16 IU/L (<34); PROTEIN TOTAL 6.3 g/dL (6.0-8.3)
[2024-06-20 08:34] LABS: BILIRUBIN TOTAL 0.5 mg/dL (0.1-1.0); TOTAL IRON BINDING CAPACITY 205 ug/dl (250-425)
[2024-06-20 08:39] LABS: THYROID STIMULATING HORMONE 3.43 uIU/mL (0.55-4.78)
[2024-06-20] MEDS: SIMETHICONE 80MG TABLET CHEW PO PRN (10:50)
[2024-06-21] MEDS ORDERED: ZOLPIDEM TARTRATE 5MG TABLET PO PRN (00:45)
[2024-06-21] MEDS: ZOLPIDEM TARTRATE 5MG TABLET PO PRN (00:58)
[2024-06-21 07:34] LABS: BASOPHILS % 0.2 % (0.0-2.0); EOSINOPHILS % 1.2 % (0.0-5.0); HEMATOCRIT. 24.6 % (36.0-48.0); HEMOGLOBIN. 7.8 g/dL (12.0-16.0); LYMPHOCYTES % 23.8 % (20.0-50.0); MEAN CORPUSCULAR HEMOGLOBIN 28.2 pg (28.0-32.0); MEAN CORPUSCULAR HGB CONC 31.7 g/dL (31.0-37.0); MEAN CORPUSCULAR VOLUME 88.9 fL (81.0-99.0); MEAN PLATELET VOLUME 8.2 fl (7.4-10.4); MONOCYTES % 7.1 % (2.0-8.0); NEUTROPHILS % 67.7 % (40.0-76.0); PLATELET 380 x1000/uL (130-400); RED BLOOD CELL COUNT 2.76 mill/uL (4.2-5.4); RED CELL DISTRIBUTION WIDTH 15.3 % (11.6-14.6); WHITE BLOOD COUNT 19.3 x1000/uL (4.5-11.0)
[2024-06-21 07:40] LABS: CHLORIDE 102 mEq/L (98-107); POTASSIUM 3.9 mEq/L (3.5-5.1); SODIUM 139 mEq/L (136-145)
[2024-06-21 07:41] LABS: CALCIUM 9.6 mg/dL (8.7-10.4); CARBON DIOXIDE 31 mEq/L (21-32)
[2024-06-21 07:46] LABS: GLUCOSE 115 mg/dL (70-105); UREA NITROGEN BLOOD 11 mg/dL (9-23)
[2024-06-21 08:00] VITALS: BP 134/55; PULSE 91; RESP 20; TEMP 35.8; O2SAT 98
[2024-06-21] MEDS: IRON SUCROSE COMPLEX 100 MG in SODIUM CHLORIDE 0.9% 100 ML IV SCH (09:39)
[2024-06-21] MEDS: ACETAMINOPHEN 325MG TABLET PO PRN (17:34)
[2024-06-21] MEDS: ERGOCALCIFEROL 50000UNITS CAPSULE PO SCH (17:34)
[2024-06-21] MEDS: NA PHOS,M-B/NA PHOS,DI-BA ENEMA 118ML PR NR (19:00)
[2024-06-21 20:00] VITALS: BP 120/69; PULSE 71; RESP 18; TEMP 36.3; O2SAT 98
[2024-06-21] MEDS: LACTULOSE 20G/30ML UDC PO SCH (20:27)
[2024-06-21] MEDS: GABAPENTIN 100MG CAPSULE PO SCH (21:13)
[2024-06-22 08:00] VITALS: BP 152/81; PULSE 75; RESP 18; TEMP 35.9; O2SAT 96
[2024-06-22 08:34] LABS: BASOPHILS % 0.8 % (0.0-2.0); EOSINOPHILS % 1.2 % (0.0-5.0); HEMATOCRIT. 29.1 % (36.0-48.0); HEMOGLOBIN. 8.9 g/dL (12.0-16.0); LYMPHOCYTES % 25.3 % (20.0-50.0); MEAN CORPUSCULAR HEMOGLOBIN 27.8 pg (28.0-32.0); MEAN CORPUSCULAR HGB CONC 30.7 g/dL (31.0-37.0); MEAN CORPUSCULAR VOLUME 90.5 fL (81.0-99.0); MEAN PLATELET VOLUME 9.4 fl (7.4-10.4); NEUTROPHILS % 66.7 % (40.0-76.0); PLATELET 375 x1000/uL (130-400); RED BLOOD CELL COUNT 3.21 mill/uL (4.2-5.4); RED CELL DISTRIBUTION WIDTH 15.8 % (11.6-14.6); WHITE BLOOD COUNT 18.7 x1000/uL (4.5-11.0)
[2024-06-22 08:34] LABS: POTASSIUM 4.5 mEq/L (3.5-5.1)
[2024-06-22 08:35] LABS: CALCIUM 10.2 mg/dL (8.7-10.4)
[2024-06-22 08:40] LABS: CREATININE 1.2 mg/dL (0.6-1.0)
[2024-06-22] MEDS: POLYETHYLENE GLYCOL 3350 (17GM) 1 DOSE PACK PO SCH (11:34)
[2024-06-22 20:00] VITALS: BP 136/76; PULSE 82; RESP 18; TEMP 36.3; O2SAT 99
[2024-06-22] MEDS: SENNOSIDES/DOCUSATE SOD 8.6/50MG TABLET PO SCH (22:09)
[2024-06-23 08:00] VITALS: BP 135/46; PULSE 75; RESP 19; TEMP 35.8; O2SAT 97
[2024-06-23 13:04] LABS: CALCIUM 9.6 mg/dL (8.7-10.4); CHLORIDE 105 mEq/L (98-107); POTASSIUM 3.9 mEq/L (3.5-5.1); SODIUM 141 mEq/L (136-145)
[2024-06-23 13:05] LABS: CARBON DIOXIDE 29 mEq/L (21-32)
[2024-06-23 13:10] LABS: GLUCOSE 119 mg/dL (70-105); UREA NITROGEN BLOOD 10 mg/dL (9-23)
[2024-06-23 13:50] LABS: BASOPHILS % 0.5 % (0.0-2.0); EOSINOPHILS % 1.4 % (0.0-5.0); HEMATOCRIT. 24.9 % (36.0-48.0); HEMOGLOBIN. 7.6 g/dL (12.0-16.0); LYMPHOCYTES % 23.1 % (20.0-50.0); MEAN CORPUSCULAR HEMOGLOBIN 27.5 pg (28.0-32.0); MEAN CORPUSCULAR HGB CONC 30.7 g/dL (31.0-37.0); MEAN CORPUSCULAR VOLUME 89.7 fL (81.0-99.0); MEAN PLATELET VOLUME 8.8 fl (7.4-10.4); MONOCYTES % 7.4 % (2.0-8.0); NEUTROPHILS % 67.6 % (40.0-76.0); PLATELET 334 x1000/uL (130-400); RED BLOOD CELL COUNT 2.77 mill/uL (4.2-5.4); WHITE BLOOD COUNT 13.4 x1000/uL (4.5-11.0)
[2024-06-23 20:00] VITALS: BP 151/74; PULSE 95; RESP 19; TEMP 36.4; O2SAT 95
[2024-06-24] MEDS: ZOLPIDEM TARTRATE 5MG TABLET PO PRN (00:16)
[2024-06-24] MEDS: HYDROCODONE/ACETAMINOPHEN 10/325MG TABLET PO PRN (02:56)
[2024-06-24 08:00] VITALS: BP 145/88; PULSE 69; RESP 18; TEMP 36.9; O2SAT 98
[2024-06-24 09:12] LABS: BASOPHILS % 0.4 % (0.0-2.0); CALCIUM 10.1 mg/dL (8.7-10.4); CARBON DIOXIDE 30 mEq/L (21-32); CHLORIDE 104 mEq/L (98-107); EOSINOPHILS % 1.4 % (0.0-5.0); HEMATOCRIT. 26.9 % (36.0-48.0); HEMOGLOBIN. 8.8 g/dL (12.0-16.0); LYMPHOCYTES % 26.5 % (20.0-50.0); MEAN CORPUSCULAR HEMOGLOBIN 29.3 pg (28.0-32.0); MEAN CORPUSCULAR HGB CONC 32.6 g/dL (31.0-37.0); MEAN CORPUSCULAR VOLUME 90.1 fL (81.0-99.0); MEAN PLATELET VOLUME 8.2 fl (7.4-10.4); MONOCYTES % 5.4 % (2.0-8.0); NEUTROPHILS % 66.3 % (40.0-76.0); PLATELET 385 x1000/uL (130-400); POTASSIUM 3.8 mEq/L (3.5-5.1); RED BLOOD CELL COUNT 2.99 mill/uL (4.2-5.4); RED CELL DISTRIBUTION WIDTH 16.1 % (11.6-14.6); SODIUM 139 mEq/L (136-145); WHITE BLOOD COUNT 14.9 x1000/uL (4.5-11.0)
[2024-06-24 09:17] LABS: CREATININE 0.9 mg/dL (0.6-1.0); GLUCOSE 152 mg/dL (70-105); UREA NITROGEN BLOOD 11 mg/dL (9-23)
[2024-06-24] MEDS: HYDROCODONE/ACETAMINOPHEN 5/325MG TABLET PO PRN (09:59)
[2024-06-24] MEDS ORDERED: NALOXONE HCL 0.4MG/ML VIAL IV PRN (10:00)
[2024-06-24] MEDS: FERROUS SULFATE 325MG TABLET PO SCH (10:34)
[2024-06-24] MEDS: ASCORBIC ACID 500 MG TABLET PO SCH (10:34)
[2024-06-24 20:00] VITALS: BP 136/63; PULSE 75; RESP 18; TEMP 36.7; O2SAT 96
[2024-06-25 08:00] VITALS: BP 153/71; PULSE 71; RESP 20; TEMP 35.8; O2SAT 96
[2024-06-25] MEDS: HYDROXYZINE 25MG TABLET PO PRN (15:54)
[2024-06-25] MEDS: TRAMADOL HCL/ACETAMINOPHEN 37.5/325MG TABLET PO PRN (15:58)
[2024-06-25 20:00] VITALS: BP 122/77; PULSE 75; RESP 20; TEMP 36; O2SAT 98
[2024-06-25] MEDS ORDERED: DEXTROSE 50% WATER 50ML SYRINGE IV PRN (22:15)
[2024-06-25] MEDS: ZOLPIDEM TARTRATE 5MG TABLET PO PRN (22:58)
[2024-06-26] MEDS ORDERED: INSULIN LISPRO 100 UNITS/ML SUBCUT SCH (07:00)
[2024-06-26] MEDS: BLOOD SUGAR DIAGNOSTIC STRIP TEST SCH (07:40)
[2024-06-26 08:00] VITALS: BP 131/65; PULSE 74; RESP 17; TEMP 36.4; O2SAT 99
[2024-06-26 08:14] LABS: CHLORIDE 106 mEq/L (98-107); POTASSIUM 3.7 mEq/L (3.5-5.1); SODIUM 141 mEq/L (136-145)
[2024-06-26 08:15] LABS: CALCIUM 9.5 mg/dL (8.7-10.4); CARBON DIOXIDE 29 mEq/L (21-32)
[2024-06-26 08:20] LABS: GLUCOSE 103 mg/dL (70-105); UREA NITROGEN BLOOD 11 mg/dL (9-23)
[2024-06-26] MEDS: INSULIN LISPRO (LOW DOSE) 100 UNITS/ML SUBCUT SCH (09:00)
[2024-06-26 09:29] LABS: BASOPHILS % 0.8 % (0.0-2.0); DIFFERENTIAL COMMENT 1; EOSINOPHILS % 1.2 % (0.0-5.0); HEMATOCRIT. 25.5 % (36.0-48.0); HEMOGLOBIN. 8.3 g/dL (12.0-16.0); LYMPHOCYTES % 26.6 % (20.0-50.0); MEAN CORPUSCULAR HGB CONC 32.4 g/dL (31.0-37.0); MEAN CORPUSCULAR VOLUME 89.5 fL (81.0-99.0); MONOCYTES % 5.4 % (2.0-8.0); RED BLOOD CELL COUNT 2.85 mill/uL (4.2-5.4); RED CELL DISTRIBUTION WIDTH 16.5 % (11.6-14.6)
[2024-06-26 10:12] LABS: PLATELET 368 x1000/uL (130-400)
[2024-06-26 20:00] VITALS: BP 149/60; PULSE 85; RESP 18; TEMP 36.2; O2SAT 98
[2024-06-27 08:00] VITALS: BP 141/72; PULSE 78; RESP 20; TEMP 35.8; O2SAT 98
[2024-06-27 11:49] VITALS: BP 141/72; PULSE 78; TEMP 96.5; O2SAT 98
[2024-06-27] MEDS ORDERED: EMPA25TA PO (12:47)
[2024-06-27] MEDS ORDERED: MELA1TAB51 PO (12:47)
[2024-06-27] MEDS ORDERED: HYDR10TA34 PO (12:47)
[2024-06-27] MEDS ORDERED: FERR-63 PO (12:47)
[2024-06-27] MEDS ORDERED: PREG75CA PO (12:47)
[2024-06-27] MEDS ORDERED: ERGO1250 PO (12:47)
[2024-06-27] MEDS ORDERED: LIP40 PO (12:47)
[2024-06-27] MEDS ORDERED: MOM PO (12:47)
[2024-06-27] MEDS ORDERED: HYDR-4001 PO (12:47)
[2024-06-27] MEDS ORDERED: METF-414 PO (12:47)
[2024-06-27] MEDS ORDERED: BUPR-114 PO (12:47)
[2024-06-27] MEDS ORDERED: PANT40TA51 PO (12:47)
[2024-06-27] MEDS ORDERED: ASCO500T20 PO (12:47)
[2024-06-27] MEDS ORDERED: CYAN-50 PO (12:47)
[2024-06-27] MEDS ORDERED: AMLO5TAB88 PO (12:47)
[2024-06-27] MEDS ORDERED: SENN1TAB35 PO (12:47)
[2024-06-27] MEDS ORDERED: SUCR1TAB PO (12:47)
[2024-06-27] MEDS ORDERED: TOPUD PO (12:47)
[2024-06-27] MEDS ORDERED: SIME80TA16 PO (12:47)
[2024-06-27] MEDS ORDERED: CHOL200016 PO (12:47)
[2024-06-27] MEDS ORDERED: WHEA1POW2 PO (12:50)
== END 2024-06-27 14:15 | disposition home health service (06) | DRG 551 ==
PROVIDERS: ADMIT Psychiatry & Neurology Neurology; ATTEND Internal Medicine
DX: M47.26 Other spondylosis with radiculopathy, lumbar region (principal); K57.31 Diverticulosis of large intestine without perforation or abscess with bleeding; F03.918 Unspecified dementia, unspecified severity, with other behavioral disturbance; F03.93 Unspecified dementia, unspecified severity, with mood disturbance; F03.94 Unspecified dementia, unspecified severity, with anxiety; F33.1 Major depressive disorder, recurrent, moderate; G82.20 Paraplegia, unspecified; I50.32 Chronic diastolic (congestive) heart failure; N17.9 Acute kidney failure, unspecified; Z68.43 Body mass index [BMI] 50.0-59.9, adult; B37.9 Candidiasis, unspecified; D18.09 Hemangioma of other sites; D50.9 Iron deficiency anemia, unspecified; D72.829 Elevated white blood cell count, unspecified; E11.42 Type 2 diabetes mellitus with diabetic polyneuropathy; E11.51 Type 2 diabetes mellitus with diabetic peripheral angiopathy without gangrene; E11.65 Type 2 diabetes mellitus with hyperglycemia; E53.8 Deficiency of other specified B group vitamins; E66.01 Morbid (severe) obesity due to excess calories; E78.5 Hyperlipidemia, unspecified; F41.1 Generalized anxiety disorder; G47.00 Insomnia, unspecified; G47.33 Obstructive sleep apnea (adult) (pediatric); G89.29 Other chronic pain; I11.0 Hypertensive heart disease with heart failure; K21.9 Gastro-esophageal reflux disease without esophagitis; K80.20 Calculus of gallbladder without cholecystitis without obstruction; M15.9 Polyosteoarthritis, unspecified; M43.16 Spondylolisthesis, lumbar region; M48.061 Spinal stenosis, lumbar region without neurogenic claudication; M50.31 Other cervical disc degeneration, high cervical region; M51.16 Intervertebral disc disorders with radiculopathy, lumbar region; M70.62 Trochanteric bursitis, left hip; M70.72 Other bursitis of hip, left hip; M77.9 Enthesopathy, unspecified; M79.7 Fibromyalgia; Z96.652 Presence of left artificial knee joint; R26.9 Unspecified abnormalities of gait and mobility; E55.9 Vitamin D deficiency, unspecified; R07.89 Other chest pain; Z60.2 Problems related to living alone; K59.00 Constipation, unspecified; Z79.899 Other long term (current) drug therapy; Z82.49 Family history of ischemic heart disease and other diseases of the circulatory system; Z91.81 History of falling; Z79.82 Long term (current) use of aspirin; Z79.4 Long term (current) use of insulin
CPT/HCPCS: 36415; 74018; 80048; 80053; 81003; 82306; 82607; 82728; 82962; 83036; 83540; 83550; 84134; 84145; 84443; 85025; 97110; 97116; 97150; 97162; 97166; 97530; 97535; A4606; J1815; J2405; J7050

== ENCOUNTER 2024-07-31 03:46 | Inpatient (IN) | payer MEDICARE, MEDICAID ==
[~2024-07-31] VITALS: Ht 165.1 cm; Wt 120.2 kg
[2024-07-31] VITALS (69 sets, daily range): BP systolic 104–179; BP diastolic 59–150; PULSE 52–70; RESP 14–30; TEMP 36.6; O2SAT 79–100
[~2024-07-31 03:46] MED LIST changes: -AMLO5TAB88 MT; +AMLO5TAB88 PO; +ASCO500T20 PO; -ASPI-1497 MT; -ATOR-2 PO; +BUPR-114 PO; +CHOL200016 PO; +CYAN-50 PO; -EMPA25TA MT; +EMPA25TA PO; +ERGO1250 PO; -ESCI20TA37 PO; +FERR-63 PO; -FURO40TA5 MT; -FURO40TA5 PO; +HYDR-4001 PO; +HYDR10TA34 PO; +LIP40 PO; -LISI10TA26 MT; -LOSA100T33 MT; +MELA1TAB51 PO; -METF-414 MT; +METF-414 PO; +MOM PO; -PANT40TA51 MT; +PANT40TA51 PO; -POTA-203 PO; +PREG75CA PO; -SEMA3TAB4; +SENN1TAB35 PO; +SIME80TA16 PO; +SUCR1TAB PO; +TOPUD PO; +WHEA1POW2 PO
[2024-07-31] MEDS ORDERED: TENECTEPLASE 50MG/VIAL IV ONE (04:30)
[2024-07-31] MEDS: TENECTEPLASE 50MG/VIAL IV NR (05:04)
[2024-07-31] MEDS ORDERED: *TENECTEPLASE FOR AIS XX SCH (05:05)
[2024-07-31 05:30] LABS: BASOPHILS % 0.2 % (0.0-2.0); HEMATOCRIT. 31.9 % (36.0-48.0); HEMOGLOBIN. 9.9 g/dL (12.0-16.0); LYMPHOCYTES % 23.8 % (20.0-50.0); MEAN CORPUSCULAR HGB CONC 31.2 g/dL (31.0-37.0); MEAN CORPUSCULAR VOLUME 86.5 fL (81.0-99.0); MEAN PLATELET VOLUME 9.2 fl (7.4-10.4); MONOCYTES % 5.1 % (2.0-8.0); NEUTROPHILS % 69.9 % (40.0-76.0); PLATELET 308 x1000/uL (130-400); RED BLOOD CELL COUNT 3.68 mill/uL (4.2-5.4); RED CELL DISTRIBUTION WIDTH 16.6 % (11.6-14.6)
[2024-07-31 05:38] LABS: CHLORIDE 105 mEq/L (98-107); POTASSIUM 3.6 mEq/L (3.5-5.1); SODIUM 142 mEq/L (136-145)
[2024-07-31 05:39] LABS: CALCIUM 9.2 mg/dL (8.7-10.4); CARBON DIOXIDE 30 mEq/L (21-32)
[2024-07-31] MEDS: IOHEXOL-350 100 ML BOTTLE ONE (05:40)
[2024-07-31 05:42] LABS: INR 1.1; PROTHROMBIN TIME 11.4 sec (9.6-11.0)
[2024-07-31] MEDS: NICARDIPINE 40MG/200ML PREMIX 200 ML IV ONE (05:43)
[2024-07-31 05:46] LABS: ALANINE AMINOTRANSFERASE 15 IU/L (10-49); ASPARTATE AMINOTRANSFERASE 16 IU/L (<34); BILIRUBIN DIRECT 0.1 mg/dL (<=3.0)
[2024-07-31 05:47] LABS: BILIRUBIN TOTAL 0.5 mg/dL (0.1-1.0); PROTEIN TOTAL 6.8 g/dL (6.0-8.3)
[2024-07-31 05:55] LABS: CREATININE 1.4 mg/dL (0.6-1.0); ETHANOL BLOOD < 10 mg/dL (<10); GLUCOSE 129 mg/dL (70-105); UREA NITROGEN BLOOD 22 mg/dL (9-23)
[2024-07-31 05:58] LABS: TROPONIN I HIGH SENSITIVITY 99 ng/L (3.0-34)
[2024-07-31] MEDS ORDERED: NICARDIPINE 100 MG in SODIUM CHLORIDE 0.9% 60 ML IV PRN (08:15)
[2024-07-31] MEDS ORDERED: IPRATROPIUM/ALBUTEROL 0.5-3(2.5)MG/3ML NEB HHN PRN (08:15)
[2024-07-31] MEDS ORDERED: DIPHENHYDRAMINE 50MG/ML VIAL IV PRN (08:15)
[2024-07-31] MEDS ORDERED: MAGNESIUM/ALUMINUM HYDROXIDE/SIMETHICONE 30ML UDC PO PRN (08:15)
[2024-07-31] MEDS ORDERED: ONDANSETRON HCL 4MG/2ML INJ IV PRN (08:15)
[2024-07-31] MEDS ORDERED: ACETAMINOPHEN 325MG TABLET PO PRN ×2 (08:15)
[2024-07-31] MEDS ORDERED: DOCUSATE SODIUM 100MG CAPSULE PO PRN (08:15)
[2024-07-31] MEDS ORDERED: CLONIDINE 0.1MG TABLET PO PRN (08:15)
[2024-07-31] MEDS ORDERED: NICARDIPINE 50 MG in SODIUM CHLORIDE 0.9% 250 ML IV PRN (08:30)
[2024-07-31] MEDS: AMLODIPINE 5MG TABLET PO SCH (10:38)
[2024-07-31] MEDS ORDERED: DEXTROSE 50% WATER 50ML SYRINGE IV PRN (13:00)
[2024-07-31] MEDS: LORAZEPAM 2MG/ML UD SYRINGE IV SCH (13:36)
[2024-07-31 13:55] LABS: TROPONIN I HIGH SENSITIVITY 108 ng/L (3.0-34)
[2024-07-31] MEDS ORDERED: HYDRALAZINE 10 MG in SODIUM CHLORIDE 0.9% 49.5 ML IV PRN (14:30)
[2024-07-31] MEDS ORDERED: HYDRALAZINE 20MG/ML VIAL IV PRN ×2 (14:45)
[2024-07-31] MEDS: DICLOFENAC SODIUM 1% GEL 50GM TOP SCH (16:03)
[2024-07-31] MEDS: PANTOPRAZOLE SODIUM 40 MG/VIAL IV SCH (16:03)
[2024-07-31] MEDS: SUCRALFATE 1G TABLET PO SCH (16:03)
[2024-07-31] MEDS: CITALOPRAM HYDROBROMIDE 10MG TABLET PO SCH (16:03)
[2024-07-31] MEDS: BLOOD SUGAR DIAGNOSTIC STRIP TEST SCH (16:04)
[2024-07-31] MEDS: INSULIN LISPRO 100 UNITS/ML SUBCUT SCH (16:13)
[2024-07-31] MEDS: FUROSEMIDE 40MG TABLET PO SCH (16:16)
[2024-07-31] MEDS ORDERED: FUROSEMIDE 40MG TABLET PO SCH (17:15)
[2024-07-31 17:38] LABS: CREATINE KINASE MB FRACTION 1.3 ng/mL (0.5-3.6)
[2024-07-31 20:23] LABS: CLARITY URINE CLEAR (CLEAR); COLOR URINE YELLOW (YELLOW); GLUCOSE URINE NEGATIVE (NEGATIVE); KETONES URINE NEGATIVE (NEGATIVE); LEUKOCYTE ESTERASE URINE NEGATIVE (NEGATIVE); NITRITE URINE NEGATIVE (NEGATIVE); OCCULT BLOOD URINE NEGATIVE (NEGATIVE); PH URINE 7.5 (4.5-8.0); PROTEIN URINE NEGATIVE (NEGATIVE); SPECIFIC GRAVITY URINE 1.048 (1.005-1.030); UROBILINOGEN URINE 0.2 E.U./dL (0.2-1.0)
[2024-07-31 20:44] LABS: *AMPHETAMINES SCREEN URINE NEGATIVE (NEGATIVE); *BARBITURATES SCREEN URINE NEGATIVE (NEGATIVE); *BENZODIAZEPINES SCREEN URINE NEGATIVE (NEGATIVE); *COCAINE SCREEN URINE NEGATIVE (NEGATIVE)
[2024-07-31 20:45] LABS: CANNABINOID URINE SCREEN NEGATIVE (NEGATIVE); ECSTASY MDMA SCREEN URINE CONF.TEST INDICATED (NEGATIVE); METHADONE URINE SCREEN NEGATIVE (NEGATIVE); OPIATES URINE SCREEN NEGATIVE (NEGATIVE); PHENCYCLIDINE URINE SCREEN NEGATIVE (NEGATIVE)
[2024-07-31] MEDS ORDERED: ATORVASTATIN CALCIUM 40MG TABLET PO SCH (21:00)
[2024-07-31] MEDS: ATORVASTATIN CALCIUM 40MG TABLET PO SCH (21:03)
[2024-07-31] MEDS: HYDROCODONE/ACETAMINOPHEN 5/325MG TABLET PO SCH (21:34)
[2024-07-31] MEDS ORDERED: NALOXONE HCL 0.4MG/ML VIAL IV PRN (21:45)
[2024-07-31] MEDS: ZOLPIDEM TARTRATE 5MG TABLET PO PRN (23:49)
[2024-08-01] VITALS (54 sets, daily range): BP systolic 129–178; BP diastolic 62–131; PULSE 55–74; RESP 14–26; TEMP 36.4–36.8; O2SAT 92–100
[2024-08-01 00:08] LABS: CREATINE KINASE MB FRACTION 1.3 ng/mL (0.5-3.6)
[2024-08-01] MEDS: HYDROCODONE/ACETAMINOPHEN 5/325MG TABLET PO PRN (05:02)
[2024-08-01 05:18] LABS: BASOPHILS % 0.6 % (0.0-2.0); EOSINOPHILS % 1.5 % (0.0-5.0); HEMATOCRIT. 32.3 % (36.0-48.0); HEMOGLOBIN. 10.1 g/dL (12.0-16.0); LYMPHOCYTES % 45.3 % (20.0-50.0); MEAN CORPUSCULAR HEMOGLOBIN 27.3 pg (28.0-32.0); MEAN CORPUSCULAR HGB CONC 31.2 g/dL (31.0-37.0); MEAN CORPUSCULAR VOLUME 87.5 fL (81.0-99.0); MEAN PLATELET VOLUME 9.3 fl (7.4-10.4); MONOCYTES % 6.6 % (2.0-8.0); PLATELET 298 x1000/uL (130-400); RED BLOOD CELL COUNT 3.69 mill/uL (4.2-5.4); RED CELL DISTRIBUTION WIDTH 16.1 % (11.6-14.6); WHITE BLOOD COUNT 10.8 x1000/uL (4.5-11.0)
[2024-08-01 05:26] LABS: CARBON DIOXIDE 30 mEq/L (21-32); CHLORIDE 103 mEq/L (98-107); POTASSIUM 3.7 mEq/L (3.5-5.1); SODIUM 139 mEq/L (136-145)
[2024-08-01 05:27] LABS: CALCIUM 9.1 mg/dL (8.7-10.4)
[2024-08-01 05:31] LABS: GLUCOSE 125 mg/dL (70-105)
[2024-08-01 05:32] LABS: LDL CHOLESTEROL 94 mg/dL (5-100); TRIGLYCERIDE 134 mg/dL (0-150); UREA NITROGEN BLOOD 17 mg/dL (9-23)
[2024-08-01 05:34] LABS: CHOLESTEROL 172 mg/dL (<200); HDL CHOLESTEROL 48 mg/dL (>65)
[2024-08-01] MEDS: GUAIFENESIN 200MG/10ML SUGAR FREE UDC PO PRN (06:53)
[2024-08-01] MEDS: AMLODIPINE 5MG TABLET PO SCH (10:06)
[2024-08-02] VITALS (10 sets, daily range): BP systolic 101–156; BP diastolic 61–116; PULSE 68–90; RESP 16–22; TEMP 36.1–37.2; O2SAT 94–97
[2024-08-02] MEDS ORDERED: AMLO5TAB88 PO (10:33)
[2024-08-02] MEDS ORDERED: ASPI-1406 MT (10:33)
[2024-08-02] MEDS ORDERED: LIP40 PO (10:33)
[2024-08-02] MEDS ORDERED: IBUP-2028 MT (13:24)
[2024-08-02] MEDS ORDERED: ASPIRIN 81MG EC TABLET PO STA (13:41)
[2024-08-02] MEDS ORDERED: CLOPIDOGREL 75MG TABLET PO STA (13:41)
[2024-08-02] MEDS: CLOPIDOGREL 75MG TABLET PO SCH (14:04)
== END 2024-08-02 18:10 | disposition home health service (06) | DRG 61 ==
LOC: ER 03:46 → ENRESERV 06:58 → MICUSO 07:54 → 5EST 08-01 20:27
PROVIDERS: ADMIT Internal Medicine; ATTEND Internal Medicine
DX: G45.9 Transient cerebral ischemic attack, unspecified (principal); I21.4 Non-ST elevation (NSTEMI) myocardial infarction; K57.91 Diverticulosis of intestine, part unspecified, without perforation or abscess with bleeding; G81.94 Hemiplegia, unspecified affecting left nondominant side; G82.20 Paraplegia, unspecified; I50.32 Chronic diastolic (congestive) heart failure; N17.9 Acute kidney failure, unspecified; Z68.41 Body mass index [BMI] 40.0-44.9, adult; R47.1 Dysarthria and anarthria; E11.42 Type 2 diabetes mellitus with diabetic polyneuropathy; E66.01 Morbid (severe) obesity due to excess calories; I11.0 Hypertensive heart disease with heart failure; M48.02 Spinal stenosis, cervical region; M50.31 Other cervical disc degeneration, high cervical region; Z96.652 Presence of left artificial knee joint; M79.7 Fibromyalgia; E78.5 Hyperlipidemia, unspecified; F41.1 Generalized anxiety disorder; M15.9 Polyosteoarthritis, unspecified; R53.81 Other malaise; M47.26 Other spondylosis with radiculopathy, lumbar region; M47.812 Spondylosis without myelopathy or radiculopathy, cervical region; M70.72 Other bursitis of hip, left hip; G47.00 Insomnia, unspecified; Z82.3 Family history of stroke; Z82.49 Family history of ischemic heart disease and other diseases of the circulatory system
CPT/HCPCS: 36415; 70496; 70498; 70551; 71045; 80048; 80061; 80076; 80305; 80320; 81003; 82550; 82553; 82962; 83036; 83605; 83880; 84145; 84484; 85025; 92523; 92610; 93005; 93306; 97162; 97166; 97168; 99291; 99292; A4606; J1815; J2060; J2470; J3101; Q9967; G0480